=== PATIENT | male | born 1965 | race Caucasian/White ===

== ENCOUNTER 2017-09-29 19:39 | Emergency (ER) | payer OTHER ==
[2017-09-29] MEDS ORDERED: Ketorolac 60 MG/2 ML SDV IM ONE (20:09)
--- NOTE | 2017-09-29 20:10 | EDM.PDOC ---
ED HPI GENERAL MEDICAL PROBLEM - General Chief Complaint: Back Pain or Injury Stated Complaint: BACK PAIN/RT SIDE Time Seen by Provider: 09/29/17 19:58 - History of Present Illness INITIAL COMMENTS - FREE TEXT/NARRATIVE: HISTORY AND PHYSICAL: History of present illness: The patient is a 52-year-old male who says he's had issues with his lumbar back in the past with a slipped disc and presents with lower cervical upper thoracic left-sided deep pain which she describes as muscle-like in character and he cannot get comfortable. 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 He has no chest pain no shortness of breath no fevers no chills and no lower back or mid back complaints. The patient says he feels numbness going down the back of his arm along the triceps down all the way to his hand but he does not have weakness in his arm. 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 He says in the past he cannot take muscle relaxers as they put him to sleep for 12 hours and he has taken Emblem in the past for pain. He has not taken anything [id number] for this discomfort but states that he has been trying to take hot showers and the heat does help the area. The patient says that when he moves the arm and utilizes that he feels much better but when he is sitting resting or lying down it seems to be worse Review of systems: As per history of present illness and below otherwise all systems reviewed and negative. Past medical history: As per history of present illness and as reviewed below otherwise noncontributory. Surgical history: As per history of present illness and as reviewed below otherwise noncontributory. Social history: No reported history of drug or alcohol abuse. Family history: As per history of present illness and as reviewed below otherwise noncontributory. Physical exam: General: Well-developed well-nourished muscular man who is nontoxic and looks uncomfortable in the room and can't sit still and keeps moving his left upper extremity up down in all directions. HEENT: Atraumatic, normocephalic, pupils reactive, negative for conjunctival pallor or scleral icterus, mucous membranes moist, throat clear, neck supple, nontender, trachea midline. Lungs: Clear to auscultation, breath sounds equal bilaterally, chest nontender. There is no crepitus defects or deformities of the posterior chest wall Heart: S1S2, regular rate and rhythm no overt murmurs Abdomen: Soft, nondistended, nontender. NABS Negative for costovertebral tenderness. Pelvis: Deferred Genitourinary: Deferred. Rectal: Deferred. Extremities: Atraumatic, negative for cords or calf pain. Neurovascular unremarkable. Full range of motion of all extremities Neuro: Awake, alert, oriented. Cranial nerves II through XII unremarkable. Cerebellum unremarkable. Motor and sensory unremarkable throughout. Exam nonfocal. There is normal tone throughout the extremities and no evidence of any deficits of the left upper extremity on motor evaluation. Back: There are no midline step-offs tenderness defects of the cervical thoracic or lumbar spine but there is some reproducible muscle spasm and tenderness to the left of the lower cervical upper thoracic region in the deep muscles. Diagnostics: CT scan of the C-spine and T-spine Therapeutics: Toradol heat pack The patient drove himself and refuses stronger pain medications in the ED I discussed with the patient that he would possibly need an MRI going forward due to the subjective numbness he is having and as he currently has no weakness and has a significant amount of pain we would proceed to do CT scans and treat the pain as appropriately as we can. He states understanding of our inability to do this MRI and that it would likely need to be done as an outpatient. I will give him referrals to primary care to pursue this as needed. I discussed testing results with the patient and I will give him a Medrol Dosepak as there is a small disc bulge at C3-C4. I strongly advised need for follow-up. I will also give him Emblem from [employer] [facility] for pain management at home as this has worked in the past for him Impression: Mild disc disease cervical spine with paresthesia and pain Definitive disposition and diagnosis as appropriate pending reevaluation and review of above. Left Shoulder Pain Score (Numeric/FACES): 8 - Related Data Allergies Allergy/AdvReac Type Severity Reaction Status Date / Time No Known Allergies Allergy Verified 09/29/17 20:01 Home Meds: Home Meds . [No Known Home Meds] 09/29/17 [History] Past Medical History - Past Health History Medical/Surgical History: Denies Medical/Surgical History Social & Family History - Tobacco Use Smoking Status *Q: Never Smoker Second Hand Smoke Exposure: No - Caffeine Use Caffeine Use: Reports: Other - Recreational Drug Use Recreational Drug Use: No ED ROS GENERAL - Review of Systems Review Of Systems: ROS reveals no pertinent complaints other than HPI. ED EXAM, GENERAL - Physical Exam Exam: See Below (See dictation) Course - Vital Signs Last Recorded V/S: Last Vital Signs Temp 36.2 C 09/29/17 20:10 Pulse 107 H 09/29/17 20:10 Resp 18 09/29/17 20:10 BP 160/102 H 09/29/17 20:10 Pulse Ox 95 09/29/17 20:10 - Orders/Labs/Meds Orders: Active Orders 24 hr Category Date Time Status Cervical Spine wo Cont [CT] Stat Exams 09/29/17 20:09 Taken Thoracic Spine wo Cont [CT] Stat Exams 09/29/17 20:12 Taken Meds: Medications Discontinued Medications Generic Name Dose Route Start Last Admin Trade Name Jyotsna PRN Reason Stop Dose Admin Ketorolac Tromethamine 60 mg 09/29/17 20:09 09/29/17 20:15 Toradol IM 09/29/17 20:10 60 mg ONETIME ONE Administration Departure - Departure Time of Disposition: 21:46 Disposition: Home, Self-Care 01 Condition: Good Clinical Impression: Cervical disc disease - Discharge Information Referrals: PCP,None [Primary Care Provider] - Forms: ED Department Discharge Additional Instructions: The following information is given to patients seen in the emergency department who are being discharged to home. This information is to outline your options for follow-up care. We provide all patients seen in our emergency department with a follow-up referral. The need for follow-up, as well as the timing and circumstances, are variable depending upon the specifics of your emergency department visit. If you don't have a primary care physician on staff, we will provide you with a referral. We always advise you to contact your personal physician following an emergency department visit to inform them of the circumstance of the visit and for follow-up with them and/or the need for any referrals to a consulting specialist. The emergency department will also refer you to a specialist when appropriate. This referral assures that you have the opportunity for followup care with a specialist. All of these measure are taken in an effort to provide you with optimal care, which includes your followup. Under all circumstances we always encourage you to contact your private physician who remains a resource for coordinating your care. When calling for followup care, please make the office aware that this follow-up is from your recent emergency room visit. If for any reason you are refused follow-up, please contact the [facility] emergency department at and ask to speak to the emergency department charge nurse. [facility] Primary care- Internal Medicine and Family [address] [id number] Please take medication as prescribed to be [employer], Medrol Dosepak and Emblem. Please call and schedule a follow-up appointment in the clinic as you may need an outpatient MRI if symptoms do not improve. Return to ER as needed and as discussed - My Orders Last 24 Hours: My Active Orders 09/29/17 20:09 Cervical Spine wo Cont [CT] Stat 09/29/17 20:12 Thoracic Spine wo Cont [CT] Stat - Assessment/Plan Last 24 Hours: My Active Orders 09/29/17 20:09 Cervical Spine wo Cont [CT] Stat 09/29/17 20:12 Thoracic Spine wo Cont [CT] Stat
--- NOTE | 2017-09-30 09:50 | CT ---
EXAM DATE: 09/29/17 PATIENT'S AGE: 52 Patient: DON PETERS Facility: [place], [place] Site . Site : 1965 Study: CT Spine Cervical WO CONT [id number] 8:39:25 PM Ordering Physician: Cha Martínez Final Report: INDICATION: Left-sided neck and upper arm pain TECHNIQUE: CT cervical spine without contrast. COMPARISON: None FINDINGS: Vertebrae: Alignment is normal. There are no fractures or suspicious bony lesions. Small osteophytes are present at multiple levels. Discs and facet joints: Small posterior disc protrusion is present at C3-4. Remainder of the disc spaces and facet joints are within normal limits. Extraspinal findings: Prevertebral soft tissues, visualized airway, and visualized lungs are unremarkable. IMPRESSION: No acute findings or significant degenerative changes. There is a small posterior disc protrusion at C3-4. MRI evaluation should be considered for further assessment of the spinal cord and nerve roots. Please note that all CT scans at this facility use dose modulation, iterative reconstruction, and/or weight-based dosing when appropriate to reduce radiation dose to as low as reasonably achievable. Dictated by Alphonso Vazquez MD @ Sep 29 2017 8:46PM (Electronic Signature) Report Signed by Proxy. TARA
--- NOTE | 2017-09-30 09:55 | CT ---
EXAM DATE: 09/29/17 PATIENT'S AGE: 52 Patient: DON PETERS Facility: [place], [place] Site . Site : 1965 Study: CT Spine Thoracic wo cont [id number] 9:05:05 PM Ordering Physician: Cha Martínez Final Report: INDICATION: Upper back and left-sided neck pain. TECHNIQUE: CT thoracic spine without i.v. contrast. Coronal and sagittal reformats were obtained. COMPARISON: None FINDINGS: Vertebral alignment: Alignment is normal. Vertebrae: No acute fractures or aggressive osseous lesions are identified. Discs and facet joints: Mild degree of multilevel thoracic spine degenerative disc disease with anterior marginal osteophytes. Misc: Prevertebral soft tissues are normal in appearance. The visualized airway , mediastinum, and lungs are unremarkable. IMPRESSION: 1. Mild degree of multilevel thoracic spine degenerative disk disease. No suspicious osseous lesions or compression abnormality. Dictated by Darnell Gage MD @ 09/29/2017 9:35:30 PM Dictated by: Darnell Gage MD @ 09/29/2017 21:35:53 (Electronic Signature) Report Signed by Proxy. [facility]ITAL[facility]ose[facility]
== END 2017-09-29 22:06 | disposition home or self-care (01) ==
LOC: MW.ED 19:39
DX: M50.91 Cervical disc disorder, unspecified, high cervical region (principal)
CPT/HCPCS: 72125; 72128; 96372; 99283; J1885

== ENCOUNTER 2017-11-27 12:14 | Day surgery (SDC) | payer OTHER ==
[2017-11-27] MEDS ORDERED: Sodium Chloride 0.9% 1,000 ML IV ONE (12:15)
[2017-11-27] MEDS ORDERED: Ondansetron 4 MG/2 ML SDV IVPUSH ONE ×2 (12:15→14:36)
--- NOTE | 2017-11-27 12:26 | EDM.PDOC ---
ED HPI GENERAL MEDICAL PROBLEM - General Stated Complaint: VOMITING Time Seen by Provider: 11/27/17 12:16 Source of Information: Reports: Patient History Limitations: Reports: No Limitations - History of Present Illness INITIAL COMMENTS - FREE TEXT/NARRATIVE: HISTORY AND PHYSICAL: History of present illness: Patient is a 52-year-old male who presents to the emergency room today with complaints of nausea, vomiting and abdominal pain since 11:30 last night. He states he has been having an emesis every 30 minutes. Vague about his abdominal pain c/o. States it only hurts when he is wrenching during vomiting or when pressing on his epigastrium/ RUQ/RLQ. Denies any fever, chills, chest pain, shortness of breath or cough. Denies any diarrhea or constipation. No symptoms. Denies any alcohol or drug abuse. Review of systems: As per history of present illness and below otherwise all systems reviewed and negative. Past medical history: As per history of present illness and as reviewed below otherwise noncontributory. Surgical history: As per history of present illness and as reviewed below otherwise noncontributory. Social history: No reported history of drug or alcohol abuse. Family history: As per history of present illness and as reviewed below otherwise noncontributory. Physical exam: General: Well-developed and well-nourished 52-year-old male. Alert and oriented. Nontoxic appearing and in no acute distress. HEENT: Atraumatic, normocephalic, pupils equal and reactive bilaterally, negative for conjunctival pallor or scleral icterus, mucous membranes moist, throat clear, neck supple, nontender, trachea midline. No drooling or trismus noted. No meningeal signs Lungs: Clear to auscultation, breath sounds equal bilaterally, chest nontender. Heart: S1S2, regular rate and rhythm without overt murmur Abdomen: Soft, nondistended, tenderness to the right upper quadrant and right lower quadrant, rebound tenderness. Negative for masses or hepatosplenomegaly. Negative for costovertebral tenderness. Pelvis: Stable nontender. Genitourinary: Deferred. Rectal: Deferred. Skin: Intact, warm, dry. No lesions or rashes noted. Extremities: Atraumatic, negative for cords or calf pain. Neurovascular unremarkable. Neuro: Awake, alert, oriented. Cranial nerves II through XII unremarkable. Cerebellum unremarkable. Motor and sensory unremarkable throughout. Exam nonfocal. Notes: WBC 13.9, Blood Glucose 319, >1000 glucose in urine. HgA1C added at this time ( 10.8). CT shows situs with enlarged appendix and minimal surrounding inflammatory changes and right lower quadrant. Appendicolith in the base of the appendix. There is no abscess or free intraperitoneal air seen. Fatty infiltration of the liver. 1410 - Dr Ratliff was consulted on this case. He is agreeable to seeing this patient. Was made aware of the lab and CT findings. He has not eaten yet today. States that he did try drinking some fluids this morning but did have emesis shortly after. It offer him additional pain medications at this time. He states he is comfortable and declines. 1430- Dr Ratliff here to see patient. Diagnostics: CBC, CMP, Amylase, Lipase, UA Therapeutics: NS, Carly Impression: Appendicitis New onset Diabetes Plan: To OR with Gaudencio Definitive disposition and diagnosis as appropriate pending reevaluation and review of above. Onset: Today Location: Reports: Abdomen abdominal pain Pain Score (Numeric/FACES): 7 - Related Data Allergies Allergy/AdvReac Type Severity Reaction Status Date / Time No Known Allergies Allergy Verified 09/29/17 20:01 Home Meds: Home Meds Hydrocodone/Acetaminophen [Lorcet Hd 10-325 mg Tablet] 11/27/17 [History] Muscle Relaxer 11/27/17 [History] Past Medical History - Past Health History Medical/Surgical History: Denies Medical/Surgical History Social & Family History - Caffeine Use Caffeine Use: Reports: Other ED ROS GENERAL - Review of Systems Review Of Systems: ROS reveals no pertinent complaints other than HPI. ED EXAM, GENERAL - Physical Exam Exam: See Below (See dictation) Course - Vital Signs Last Recorded V/S: Last Vital Signs Temp 99.2 F 11/27/17 14:15 Pulse 84 11/27/17 14:15 Resp 16 11/27/17 14:15 BP 154/98 H 11/27/17 14:15 Pulse Ox 98 11/27/17 14:15 - Orders/Labs/Meds Orders: Active Orders 24 hr Category Date Time Status Abdomen Pelvis w Cont [CT] Stat Exams 11/27/17 12:34 Taken UA W/MICROSCOPIC [URIN] Stat Lab 11/27/17 13:30 Ordered Labs: Laboratory Tests 11/27/17 11/27/17 11/27/17 Range/Units 12:30 12:30 12:30 WBC 13.93 H (4.0-11.0) K/uL RBC 5.24 (4.50-5.90) M/uL Hgb 16.7 (13.0-17.0) g/dL Hct 45.7 (38.0-50.0) % MCV 87.2 (80.0-98.0) fL MCH 31.9 (27.0-32.0) pg MCHC 36.5 (31.0-37.0) g/dL RDW Std Deviation 39.7 (28.0-62.0) fl RDW Coeff of Fuad 12 (11.0-15.0) % Plt Count 168 (150-400) K/uL MPV 9.50 (7.40-12.00) fL Neut % (Auto) 87.7 H (48.0-80.0) % Lymph % (Auto) 7.0 L (16.0-40.0) % [place] % (Auto) 5.2 (0.0-15.0) % Eos % (Auto) 0.0 (0.0-7.0) % Baso % (Auto) 0.1 (0.0-1.5) % Neut # (Auto) 12.2 H (1.4-5.7) K/uL Lymph # (Auto) 1.0 (0.6-2.4) K/uL [place] # (Auto) 0.7 (0.0-0.8) K/uL Eos # (Auto) 0.0 (0.0-0.7) K/uL Baso # (Auto) 0.0 (0.0-0.1) K/uL Nucleated RBC % 0.0 /100WBC Nucleated RBCs # 0 K/uL Sodium 136 (136-148) mmol/L Potassium 4.2 (3.5-5.1) mmol/L Chloride 99 (98-107) mmol/L Carbon Dioxide 25.9 (21.0-32.0) mmol/L BUN 12 (7.0-18.0) mg/dL Creatinine 1.0 (0.8-1.3) mg/dL Est Cr Clr Drug Dosing 99.88 mL/min Estimated GFR (MDRD) > 60.0 ml/min Glucose 319 H (74-106) mg/dL Hemoglobin A1c (4.5-6.2) % Calcium 9.3 (8.5-10.1) mg/dL Total Bilirubin 3.0 H (0.2-1.0) mg/dL AST 19 (15-37) IU/L ALT 36 (14-63) IU/L Alkaline Phosphatase 79 (46-116) U/L Troponin I < 0.050 (0.000-0.056) ng/mL Total Protein 7.7 (6.4-8.2) g/dL Albumin 4.4 (3.4-5.0) g/dL Globulin 3.3 (2.0-3.5) g/dL Albumin/Globulin Ratio 1.3 (1.3-2.8) Amylase 16 L (25-115) U/L Lipase 110 (73-393) U/L Urine Color Urine Appearance Urine pH (5.0-8.0) Ur Specific [place] (1.001-1.035) Urine Protein (NEGATIVE) mg/dL Urine Glucose (UA) (NEGATIVE) mg/dL Urine Ketones (NEGATIVE) mg/dL Urine Occult Blood (NEGATIVE) Urine Nitrite (NEGATIVE) Urine Bilirubin (NEGATIVE) Urine Urobilinogen (<2.0) EU/dL Ur Leukocyte Esterase (NEGATIVE) Urine RBC (0-2/HPF) Urine WBC (0-5/HPF) Ur Epithelial Cells (NONE-FEW) Urine Bacteria (NEGATIVE) 11/27/17 11/27/17 Range/Units 12:30 13:30 WBC (4.0-11.0) K/uL RBC (4.50-5.90) M/uL Hgb (13.0-17.0) g/dL Hct (38.0-50.0) % MCV (80.0-98.0) fL MCH (27.0-32.0) pg MCHC (31.0-37.0) g/dL RDW Std Deviation (28.0-62.0) fl RDW Coeff of Fuad (11.0-15.0) % Plt Count (150-400) K/uL MPV (7.40-12.00) fL Neut % (Auto) (48.0-80.0) % Lymph % (Auto) (16.0-40.0) % [place] % (Auto) (0.0-15.0) % Eos % (Auto) (0.0-7.0) % Baso % (Auto) (0.0-1.5) % Neut # (Auto) (1.4-5.7) K/uL Lymph # (Auto) (0.6-2.4) K/uL [place] # (Auto) (0.0-0.8) K/uL Eos # (Auto) (0.0-0.7) K/uL Baso # (Auto) (0.0-0.1) K/uL Nucleated RBC % /100WBC Nucleated RBCs # K/uL Sodium (136-148) mmol/L Potassium (3.5-5.1) mmol/L Chloride (98-107) mmol/L Carbon Dioxide (21.0-32.0) mmol/L BUN (7.0-18.0) mg/dL Creatinine (0.8-1.3) mg/dL Est Cr Clr Drug Dosing mL/min Estimated GFR (MDRD) ml/min Glucose (74-106) mg/dL Hemoglobin A1c 10.8 H (4.5-6.2) % Calcium (8.5-10.1) mg/dL Total Bilirubin (0.2-1.0) mg/dL AST (15-37) IU/L ALT (14-63) IU/L Alkaline Phosphatase (46-116) U/L Troponin I (0.000-0.056) ng/mL Total Protein (6.4-8.2) g/dL Albumin (3.4-5.0) g/dL Globulin (2.0-3.5) g/dL Albumin/Globulin Ratio (1.3-2.8) Amylase (25-115) U/L Lipase (73-393) U/L Urine Color YELLOW Urine Appearance CLEAR Urine pH 7.0 (5.0-8.0) Ur Specific [place] <= 1.005 (1.001-1.035) Urine Protein NEGATIVE (NEGATIVE) mg/dL Urine Glucose (UA) >=1000 (NEGATIVE) mg/dL Urine Ketones >=80 (NEGATIVE) mg/dL Urine Occult Blood NEGATIVE (NEGATIVE) Urine Nitrite NEGATIVE (NEGATIVE) Urine Bilirubin NEGATIVE (NEGATIVE) Urine Urobilinogen 0.2 (<2.0) EU/dL Ur Leukocyte Esterase NEGATIVE (NEGATIVE) Urine RBC 0-2 (0-2/HPF) Urine WBC 0-3 (0-5/HPF) Ur Epithelial Cells RARE (NONE-FEW) Urine Bacteria RARE (NEGATIVE) Meds: Medications Discontinued Medications Generic Name Dose Route Start Last Admin Trade Name Freq PRN Reason Stop Dose Admin Sodium Chloride 1,000 mls @ 999 mls/hr 11/27/17 12:15 11/27/17 12:30 Normal Saline IV 11/27/17 13:15 999 mls/hr STAT ONE Administration Iopamidol 100 ml 11/27/17 13:34 11/27/17 13:35 Isovue Multipack-370 (76%) IVPUSH 11/27/17 13:35 100 ml ONETIME STA Administration Ondansetron HCl 4 mg 11/27/17 12:15 11/27/17 12:30 Zofran IVPUSH 11/27/17 12:16 4 mg ONETIME ONE Administration Ondansetron HCl 4 mg 11/27/17 14:36 11/27/17 14:43 Zofran IVPUSH 11/27/17 14:37 4 mg ONETIME ONE Administration Departure - Departure Time of Disposition: 14:49 Disposition: Still A Patient 30 Clinical Impression: Appendicitis, New onset type 2 diabetes mellitus - Discharge Information Referrals: PCP,None [Primary Care Provider] - - My Orders Last 24 Hours: My Active Orders 11/27/17 12:34 Abdomen Pelvis w Cont [CT] Stat 11/27/17 13:30 UA W/MICROSCOPIC [URIN] Stat - Assessment/Plan Last 24 Hours: My Active Orders 11/27/17 12:34 Abdomen Pelvis w Cont [CT] Stat 11/27/17 13:30 UA W/MICROSCOPIC [URIN] Stat
[2017-11-27 12:59] LABS: CHLORIDE,CL 99 mmol/L (98-107); SODIUM,NA 136 mmol/L (136-148)
[2017-11-27] MEDS ORDERED: Iopamidol 755 MG/ML 500 ML Multipack Bottle IVPUSH STA (13:34)
[2017-11-27] MEDS ORDERED: cefOXitin 2 GM in Premix Bag 1 BAG IV ONE ×2 (14:53→14:57)
--- NOTE | 2017-11-27 15:01 | PCM.HP ---
H&P History of Present Illness - General Date of Service: 11/27/17 Admit Problem/Dx: Admission Diagnosis/Problem Admission Diagnosis/Problem Acute abdomen Source of Information: Patient History Limitations: Reports: No Limitations - History of Present Illness Initial Comments - Free Text/Narative: Patient is a 52-year-old gentleman who developed nausea and vomiting about midnight last night. The symptoms have been persistent. He did try to go to work but had too much abdominal pain. Says the pain is located in the right lower quadrant. He really denied pain with ambulation or jarring although did note discomfort when his abdomen was palpated. No fever or chills. No anorexia. No prior abdominal surgery. Symptom Onset Date: 11/27/17 Symptom Onset Time: 00:00 Duration of Symptoms: Reports: Hour(s): Location: Reports: Abdomen Quality: Reports: Ache, Pressure Improves with: Reports: Rest Worsens with: Reports: Movement Context: Reports: Sick Contact Associated Symptoms: Reports: Nausea/Vomiting abdominal pain Pain Score (Numeric/FACES): 7 - Related Data Allergies/Adverse Reactions: Allergies Allergy/AdvReac Type Severity Reaction Status Date / Time No Known Allergies Allergy Verified 09/29/17 20:01 Home Medications: Home Meds Hydrocodone/Acetaminophen [Lorcet Hd 10-325 mg Tablet] 11/27/17 [History] Muscle Relaxer 11/27/17 [History] Past Medical History - Past Health History Medical/Surgical History: Denies Medical/Surgical History - Infectious Disease History Infectious Disease History: Reports: Chicken Pox - Past Surgical History HEENT Surgical History: Reports: Tonsillectomy Social & Family History - Family History Family Medical History: Noncontributory - Tobacco Use Smoking Status *Q: Current Every Day Smoker Years of Tobacco use: 4 Packs/Tins Daily: 0.3 - Caffeine Use Caffeine Use: Reports: Other - Alcohol Use Days Per Week of Alcohol Use: 2 Number of Drinks Per Day: 2 Total Drinks Per Week: 4 - Recreational Drug Use Recreational Drug Use: No H&P Review of Systems - Review of Systems: Review Of Systems: See Below General: Denies: Fever, Chills, Decreased Appetite HEENT: Reports: No Symptoms Pulmonary: Denies: Shortness of Breath, Wheezing Cardiovascular: Reports: Chest Pain Gastrointestinal: Reports: Abdominal Pain, Nausea, Vomiting. Denies: Anorexia, Hematemesis, Hematochezia Genitourinary: Denies: Dysuria, Frequency, Burning Skin: Denies: Cyanosis, Jaundice Psychiatric: Denies: Confusion, Depression, Anxiety Neurological: Reports: No Symptoms Hematologic/Lymphatic: Reports: No Symptoms Immunologic: Reports: No Symptoms Exam - Exam Exam: See Below - Vital Signs Vital Signs: Last Vital Signs Temp 99.2 F 11/27/17 14:15 Pulse 84 11/27/17 14:15 Resp 16 11/27/17 14:15 BP 154/98 H 11/27/17 14:15 Pulse Ox 98 11/27/17 14:15 Weight: 250 lb - Exam General: Alert, Oriented, Cooperative, Mild Distress HEENT: Conjunctiva Clear, EOMI, Pupils Equal, Pupils Reactive. No: Scleral Icterus Neck: Supple, Trachea Midline Lungs: Clear to Auscultation, Normal Respiratory Effort Cardiovascular: Regular Rate, Regular Rhythm. No: Tachycardia GI/Abdominal Exam: Normal Bowel Sounds, Soft, No Distention, Guarding, Rebound, Tender (Right lower quadrant.). No: Rigid (Male) Exam: No Hernia Rectal (Males) Exam: Deferred Back Exam: Normal Inspection, Full Range of Motion Extremities: Normal Inspection, Normal Range of Motion Peripheral Pulses: 4+: Posterior Tibial (L), Posterior Tibial (R), Dorsalis Pedis (L), Dorsalis Pedis (R) Skin: Warm, Dry, Intact Neurological: Cranial Nerves Intact, Reflexes Equal Bilateral Neuro Extensive - Mental Status: Alert, Oriented x3, Normal Mood/Affect, Normal Cognition Psychiatric: Alert, Normal Affect, Normal Mood - Patient Data Lab Results Last 24 hrs: Laboratory Results - last 24 hr 11/27/17 11/27/17 11/27/17 Range/Units 12:30 12:30 12:30 WBC 13.93 H (4.0-11.0) K/uL RBC 5.24 (4.50-5.90) M/uL Hgb 16.7 (13.0-17.0) g/dL Hct 45.7 (38.0-50.0) % MCV 87.2 (80.0-98.0) fL MCH 31.9 (27.0-32.0) pg MCHC 36.5 (31.0-37.0) g/dL RDW Std Deviation 39.7 (28.0-62.0) fl RDW Coeff of Fuad 12 (11.0-15.0) % Plt Count 168 (150-400) K/uL MPV 9.50 (7.40-12.00) fL Neut % (Auto) 87.7 H (48.0-80.0) % Lymph % (Auto) 7.0 L (16.0-40.0) % [place] % (Auto) 5.2 (0.0-15.0) % Eos % (Auto) 0.0 (0.0-7.0) % Baso % (Auto) 0.1 (0.0-1.5) % Neut # (Auto) 12.2 H (1.4-5.7) K/uL Lymph # (Auto) 1.0 (0.6-2.4) K/uL [place] # (Auto) 0.7 (0.0-0.8) K/uL Eos # (Auto) 0.0 (0.0-0.7) K/uL Baso # (Auto) 0.0 (0.0-0.1) K/uL Nucleated RBC % 0.0 /100WBC Nucleated RBCs # 0 K/uL Sodium 136 (136-148) mmol/L Potassium 4.2 (3.5-5.1) mmol/L Chloride 99 (98-107) mmol/L Carbon Dioxide 25.9 (21.0-32.0) mmol/L BUN 12 (7.0-18.0) mg/dL Creatinine 1.0 (0.8-1.3) mg/dL Est Cr Clr Drug Dosing 99.88 mL/min Estimated GFR (MDRD) > 60.0 ml/min Glucose 319 H (74-106) mg/dL Hemoglobin A1c (4.5-6.2) % Calcium 9.3 (8.5-10.1) mg/dL Total Bilirubin 3.0 H (0.2-1.0) mg/dL AST 19 (15-37) IU/L ALT 36 (14-63) IU/L Alkaline Phosphatase 79 (46-116) U/L Troponin I < 0.050 (0.000-0.056) ng/mL Total Protein 7.7 (6.4-8.2) g/dL Albumin 4.4 (3.4-5.0) g/dL Globulin 3.3 (2.0-3.5) g/dL Albumin/Globulin Ratio 1.3 (1.3-2.8) Amylase 16 L (25-115) U/L Lipase 110 (73-393) U/L Urine Color Urine Appearance Urine pH (5.0-8.0) Ur Specific [place] (1.001-1.035) Urine Protein (NEGATIVE) mg/dL Urine Glucose (UA) (NEGATIVE) mg/dL Urine Ketones (NEGATIVE) mg/dL Urine Occult Blood (NEGATIVE) Urine Nitrite (NEGATIVE) Urine Bilirubin (NEGATIVE) Urine Urobilinogen (<2.0) EU/dL Ur Leukocyte Esterase (NEGATIVE) Urine RBC (0-2/HPF) Urine WBC (0-5/HPF) Ur Epithelial Cells (NONE-FEW) Urine Bacteria (NEGATIVE) 11/27/17 11/27/17 Range/Units 12:30 13:30 WBC (4.0-11.0) K/uL RBC (4.50-5.90) M/uL Hgb (13.0-17.0) g/dL Hct (38.0-50.0) % MCV (80.0-98.0) fL MCH (27.0-32.0) pg MCHC (31.0-37.0) g/dL RDW Std Deviation (28.0-62.0) fl RDW Coeff of Fuad (11.0-15.0) % Plt Count (150-400) K/uL MPV (7.40-12.00) fL Neut % (Auto) (48.0-80.0) % Lymph % (Auto) (16.0-40.0) % [place] % (Auto) (0.0-15.0) % Eos % (Auto) (0.0-7.0) % Baso % (Auto) (0.0-1.5) % Neut # (Auto) (1.4-5.7) K/uL Lymph # (Auto) (0.6-2.4) K/uL [place] # (Auto) (0.0-0.8) K/uL Eos # (Auto) (0.0-0.7) K/uL Baso # (Auto) (0.0-0.1) K/uL Nucleated RBC % /100WBC Nucleated RBCs # K/uL Sodium (136-148) mmol/L Potassium (3.5-5.1) mmol/L Chloride (98-107) mmol/L Carbon Dioxide (21.0-32.0) mmol/L BUN (7.0-18.0) mg/dL Creatinine (0.8-1.3) mg/dL Est Cr Clr Drug Dosing mL/min Estimated GFR (MDRD) ml/min Glucose (74-106) mg/dL Hemoglobin A1c 10.8 H (4.5-6.2) % Calcium (8.5-10.1) mg/dL Total Bilirubin (0.2-1.0) mg/dL AST (15-37) IU/L ALT (14-63) IU/L Alkaline Phosphatase (46-116) U/L Troponin I (0.000-0.056) ng/mL Total Protein (6.4-8.2) g/dL Albumin (3.4-5.0) g/dL Globulin (2.0-3.5) g/dL Albumin/Globulin Ratio (1.3-2.8) Amylase (25-115) U/L Lipase (73-393) U/L Urine Color YELLOW Urine Appearance CLEAR Urine pH 7.0 (5.0-8.0) Ur Specific [place] <= 1.005 (1.001-1.035) Urine Protein NEGATIVE (NEGATIVE) mg/dL Urine Glucose (UA) >=1000 (NEGATIVE) mg/dL Urine Ketones >=80 (NEGATIVE) mg/dL Urine Occult Blood NEGATIVE (NEGATIVE) Urine Nitrite NEGATIVE (NEGATIVE) Urine Bilirubin NEGATIVE (NEGATIVE) Urine Urobilinogen 0.2 (<2.0) EU/dL Ur Leukocyte Esterase NEGATIVE (NEGATIVE) Urine RBC 0-2 (0-2/HPF) Urine WBC 0-3 (0-5/HPF) Ur Epithelial Cells RARE (NONE-FEW) Urine Bacteria RARE (NEGATIVE) Result Diagrams: 11/27/17 12:30 11/27/17 12:30 - Problem List (1) Appendicitis SNOMED Code(s): 33589425 ICD Code: K37 - UNSPECIFIED APPENDICITIS Status: Acute Priority: High Current Visit: Yes (2) New onset type 2 diabetes mellitus SNOMED Code(s): 70146417 ICD Code: E11.9 - TYPE 2 DIABETES MELLITUS WITHOUT COMPLICATIONS Status: Acute Priority: Medium Current Visit: Yes (3) Cervical disc disease SNOMED Code(s): 971693660 ICD Code: M50.90 - CERVICAL DISC DISORDER, UNSP, UNSPECIFIED CERVICAL REGION Status: Acute Priority: Medium Current Visit: No Problem List Initiated/Reviewed/Updated: Yes Orders Last 24hrs: Active Orders 24 hr Category Date Time Status Admission Status [Patient Status] [ADT] Routine ADT 11/27/17 14:54 Ordered Antiembolic Devices [RC] PER UNIT ROUTINE Care 11/27/17 14:53 Ordered Insert Urinary Catheter [OM.PC] Q24H Care 11/27/17 15:00 Ordered Skin Preparation [RC] ASDIRECTED Care 11/27/17 14:53 Ordered Urinary Catheter Assessment [RC] ASDIRECTED Care 11/27/17 14:53 Ordered Urinary Catheter Assessment [RC] ASDIRECTED Care 11/27/17 14:53 Ordered Urinary Catheter Assessment [RC] ASDIRECTED Care 11/27/17 14:53 Ordered Vital Signs [RC] PER UNIT ROUTINE Care 11/27/17 14:53 Ordered Nothing Per Oral Diet [DIET] Diet 11/27/17 Lunch Ordered Abdomen Pelvis w Cont [CT] Stat Exams 11/27/17 12:34 Taken UA W/MICROSCOPIC [URIN] Stat Lab 11/27/17 13:30 Ordered Lactated Ringers @ 125 MLS/HR(1,000ml) Med 11/27/17 15:00 Ordered Lactated Ringers [Ringers, Lactated] 1,000 ml IV ASDIRECTED cefOXitin [Mefoxin in Dextrose,Iso-Osm 2 GM/50 ML] 2 gm Med 11/27/17 14:53 Ordered Premix Bag 1 bag IV ONETIME cefOXitin [Mefoxin in Dextrose,Iso-Osm 2 GM/50 ML] 2 gm Med 11/27/17 14:53 Ordered Premix Bag 1 bag IV ONETIME Antiembolic Hose [OM.PC] Routine Oth 11/27/17 14:53 Ordered Sequential Compression Device [OM.PC] Routine Oth 11/27/17 14:53 Ordered Resuscitation Status Routine Resus Stat 11/27/17 14:53 Ordered Medication Orders Cefoxitin Sodium 2 gm/ Premix 50 mls @ 100 mls/hr IV ONETIME ONE Stop: 11/27/17 15:22 Cefoxitin Sodium 2 gm/ Premix 50 mls @ 100 mls/hr IV ONETIME ONE Stop: 11/27/17 15:22 Lactated Ringer's (Ringers, Lactated) 1,000 mls @ 125 mls/hr IV ASDIRECTED [facility] Assessment/Plan Comment:: Acute appendicitis. Laparoscopic appendectomy, possible open appendectomy. Both operative procedures, along with the risks, including, but not limited to, bleeding, infection, pneumonia, deep venous thrombosis, pulmonary emboli, myocardial infarction, and adjacent organ injury have been reviewed with the patient who voices understanding, offers no questions and agrees to proceed.
[2017-11-27] MEDS ORDERED: Insulin Regular, Human 100 Units/ML 10 ML Vial SUBCUT STA (15:03)
[2017-11-27] MEDS: Lactated Ringers 1,000 ML IV SCH ×2 (15:09→18:31)
[2017-11-27] MEDS ORDERED: Famotidine 20 MG/2 ML SDV IVPUSH ONE (15:11)
--- NOTE | 2017-11-27 15:13 | PCM.PREANE ---
Preanesthetic Assessment - Anesthesia/Transfusion/Family Hx Anesthesia History: Prior Anesthesia Without Reaction Family History of Anesthesia Reaction: No Transfusion History: No Prior Transfusion(s) - Review of Systems General: No Symptoms Pulmonary: No Symptoms Cardiovascular: No Symptoms Gastrointestinal: No Symptoms Neurological: No Symptoms Other: Reports: None - Physical Assessment NPO Status Date: 11/27/17 O2 Sat by Pulse Oximetry: 98 Respiratory Rate: 16 Vital Signs: Last Vital Signs Temp 99.2 F 11/27/17 14:15 Pulse 84 11/27/17 14:15 Resp 16 11/27/17 14:15 BP 154/98 H 11/27/17 14:15 Pulse Ox 98 11/27/17 14:15 Height: 6 ft 1 in Weight: 113.398 kg ASA Class: 3E Mental Status: Alert & Oriented x3 Airway Class: Mallampati = 2 Dentition: Reports: Normal Dentition Thyro-Mental Finger Breadths: 3 Mouth Opening Finger Breadths: 3 ROM/Head Extension: Full Lungs: Clear to Auscultation, Normal Respiratory Effort Cardiovascular: Regular Rate, Regular Rhythm - Lab Values: Laboratory Last Values WBC 13.93 K/uL (4.0-11.0) H 11/27/17 12:30 RBC 5.24 M/uL (4.50-5.90) 11/27/17 12:30 Hgb 16.7 g/dL (13.0-17.0) 11/27/17 12:30 Hct 45.7 % (38.0-50.0) 11/27/17 12:30 MCV 87.2 fL (80.0-98.0) 11/27/17 12:30 MCH 31.9 pg (27.0-32.0) 11/27/17 12:30 MCHC 36.5 g/dL (31.0-37.0) 11/27/17 12:30 RDW Std Deviation 39.7 fl (28.0-62.0) 11/27/17 12:30 RDW Coeff of Fuad 12 % (11.0-15.0) 11/27/17 12:30 Plt Count 168 K/uL (150-400) 11/27/17 12:30 MPV 9.50 fL (7.40-12.00) 11/27/17 12:30 Neut % (Auto) 87.7 % (48.0-80.0) H 11/27/17 12:30 Lymph % (Auto) 7.0 % (16.0-40.0) L 11/27/17 12:30 [place] % (Auto) 5.2 % (0.0-15.0) 11/27/17 12:30 Eos % (Auto) 0.0 % (0.0-7.0) 11/27/17 12:30 Baso % (Auto) 0.1 % (0.0-1.5) 11/27/17 12:30 Neut # (Auto) 12.2 K/uL (1.4-5.7) H 11/27/17 12:30 Lymph # (Auto) 1.0 K/uL (0.6-2.4) 11/27/17 12:30 [place] # (Auto) 0.7 K/uL (0.0-0.8) 11/27/17 12:30 Eos # (Auto) 0.0 K/uL (0.0-0.7) 11/27/17 12:30 Baso # (Auto) 0.0 K/uL (0.0-0.1) 11/27/17 12:30 Nucleated RBC % 0.0 /100WBC 11/27/17 12:30 Nucleated RBCs # 0 K/uL 11/27/17 12:30 Sodium 136 mmol/L (136-148) 11/27/17 12:30 Potassium 4.2 mmol/L (3.5-5.1) 11/27/17 12:30 Chloride 99 mmol/L (98-107) 11/27/17 12:30 Carbon Dioxide 25.9 mmol/L (21.0-32.0) 11/27/17 12:30 BUN 12 mg/dL (7.0-18.0) 11/27/17 12:30 Creatinine 1.0 mg/dL (0.8-1.3) 11/27/17 12:30 Est Cr Clr Drug Dosing 99.88 mL/min 11/27/17 12:30 Estimated GFR (MDRD) > 60.0 ml/min 11/27/17 12:30 Glucose 319 mg/dL (74-106) H 11/27/17 12:30 Hemoglobin A1c 10.8 % (4.5-6.2) H 11/27/17 12:30 Calcium 9.3 mg/dL (8.5-10.1) 11/27/17 12:30 Total Bilirubin 3.0 mg/dL (0.2-1.0) H 11/27/17 12:30 AST 19 IU/L (15-37) 11/27/17 12:30 ALT 36 IU/L (14-63) 11/27/17 12:30 Alkaline Phosphatase 79 U/L (46-116) 11/27/17 12:30 Troponin I < 0.050 ng/mL (0.000-0.056) 11/27/17 12:30 Total Protein 7.7 g/dL (6.4-8.2) 11/27/17 12:30 Albumin 4.4 g/dL (3.4-5.0) 11/27/17 12:30 Globulin 3.3 g/dL (2.0-3.5) 11/27/17 12:30 Albumin/Globulin Ratio 1.3 (1.3-2.8) 11/27/17 12:30 Amylase 16 U/L (25-115) L 11/27/17 12:30 Lipase 110 U/L (73-393) 11/27/17 12:30 Urine Color YELLOW 11/27/17 13:30 Urine Appearance CLEAR 11/27/17 13:30 Urine pH 7.0 (5.0-8.0) 11/27/17 13:30 Ur Specific [place] <= 1.005 (1.001-1.035) 11/27/17 13:30 Urine Protein NEGATIVE mg/dL (NEGATIVE) 11/27/17 13:30 Urine Glucose (UA) >=1000 mg/dL (NEGATIVE) 11/27/17 13:30 Urine Ketones >=80 mg/dL (NEGATIVE) 11/27/17 13:30 Urine Occult Blood NEGATIVE (NEGATIVE) 11/27/17 13:30 Urine Nitrite NEGATIVE (NEGATIVE) 11/27/17 13:30 Urine Bilirubin NEGATIVE (NEGATIVE) 11/27/17 13:30 Urine Urobilinogen 0.2 EU/dL (<2.0) 11/27/17 13:30 Ur Leukocyte Esterase NEGATIVE (NEGATIVE) 11/27/17 13:30 Urine RBC 0-2 (0-2/HPF) 11/27/17 13:30 Urine WBC 0-3 (0-5/HPF) 11/27/17 13:30 Ur Epithelial Cells RARE (NONE-FEW) 11/27/17 13:30 Urine Bacteria RARE (NEGATIVE) 11/27/17 13:30 - Allergies Allergies/Adverse Reactions: Allergies Allergy/AdvReac Type Severity Reaction Status Date / Time No Known Allergies Allergy Verified 09/29/17 20:01 - Anesthesia Plan Free Text/Narrative:: Pt with 1 day Hx of abd Pain, on evaluation in the ER, undiagnosed DM II was discovered as well. BG 319 on lab work, Regular Insulin 4 units SubQ ordered, EKG pending also at this time. Risk and benefits of anesthesia were discussed, including elevated risk of MS and CVA secondary to untreated DM. Pt understands and wishes to proceed at this time. - Acknowledgements Anesthesia Type Planned: General Anesthesia (RSI) Pt an Appropriate Candidate for the Planned Anesthesia: Yes Alternatives and Risks of Anesthesia Discussed w Pt/Guardian: Yes Pt/Guardian Understands and Agrees with Anesthesia Plan: Yes PreAnesthesia Questionnaire - Past Health History Medical/Surgical History: Denies Medical/Surgical History HEENT History: Reports: None Cardiovascular History: Reports: Hypertension Respiratory History: Reports: Other (See Below) (Smoker 1 Pack per every two weeks) Gastrointestinal History: Reports: GERD Genitourinary History: Reports: None Musculoskeletal History: Reports: Neck Pain, Chronic (Bulging cervical disc) Neurological History: Reports: Other (See Below) Psychiatric History: Reports: None Endocrine/Metabolic History: Reports: Diabetes, Type II (Undiagnosed DM II, HgA1C 10.8 on this admission.), Obesity/BMI 30+ Hematologic History: Reports: None Immunologic History: Reports: None Oncologic (Cancer) History: Reports: None Dermatologic History: Reports: None - Infectious Disease History Infectious Disease History: Reports: Chicken Pox - Past Surgical History HEENT Surgical History: Reports: Tonsillectomy - SUBSTANCE USE Smoking Status *Q: Current Every Day Smoker Tobacco Use Within Last Twelve Months: Cigarettes Days Per Week of Alcohol Use: 2 Number of Drinks Per Day: 2 Total Drinks Per Week: 4 Recreational Drug Use History: No - HOME MEDS Home Medications: Home Meds Hydrocodone/Acetaminophen [Lorcet Hd 10-325 mg Tablet] 11/27/17 [History] Muscle Relaxer 11/27/17 [History] - CURRENT (IN HOUSE) MEDS Current Meds: Current Medications Cefoxitin Sodium 2 gm/ Premix 50 mls @ 100 mls/hr IV ONETIME ONE Stop: 11/27/17 15:26 Last Admin: 11/27/17 15:02 Dose: 100 mls/hr Lactated Ringer's (Ringers, Lactated) 1,000 mls @ 125 mls/hr IV ASDIRECTED LUPE Insulin Human Regular (Novolin R) 4 unit SUBCUT ONETIME STA; Protocol Stop: 11/27/17 15:04 Discontinued Medications Sodium Chloride (Normal Saline) 1,000 mls @ 999 mls/hr IV STAT ONE Stop: 11/27/17 13:15 Last Admin: 11/27/17 12:30 Dose: 999 mls/hr Iopamidol (Isovue Multipack-370 (76%)) 100 ml IVPUSH ONETIME STA Stop: 11/27/17 13:35 Last Admin: 11/27/17 13:35 Dose: 100 ml Ondansetron HCl (Zofran) 4 mg IVPUSH ONETIME ONE Stop: 11/27/17 12:16 Last Admin: 11/27/17 12:30 Dose: 4 mg Ondansetron HCl (Zofran) 4 mg IVPUSH ONETIME ONE Stop: 11/27/17 14:37 Last Admin: 11/27/17 14:43 Dose: 4 mg
[2017-11-27] MEDS ORDERED: Insulin Regular, Human 100 Units/ML 10 ML Vial ONE (15:14)
[2017-11-27] MEDS ORDERED: ceFAZolin 1 GM Vial ONE (15:14)
[2017-11-27] MEDS ORDERED: Bupivacaine 0.5% 10 ML SDV ONE (15:15)
[2017-11-27] MEDS ORDERED: Bupivacaine 0.5% 30 ML SDV ONE (15:15)
[2017-11-27] MEDS ORDERED: Lidocaine 2% 5 ML SDV ONE (15:29)
[2017-11-27] MEDS ORDERED: Ondansetron 4 MG/2 ML SDV ONE (15:29)
[2017-11-27] MEDS ORDERED: Succinylcholine 200 MG/10 ML MDV ONE (15:29)
[2017-11-27] MEDS ORDERED: Propofol 200 MG/20 ML SDV ONE (15:29)
[2017-11-27] MEDS ORDERED: Rocuronium 10 MG/ML 10 ML Syringe ONE (15:29)
[2017-11-27] MEDS ORDERED: Midazolam 1 MG/ML 2 ML SDV ONE (15:30)
[2017-11-27] MEDS ORDERED: fentaNYL 250 MCG/5 ML SDV ONE (15:30)
[2017-11-27] MEDS ORDERED: fentaNYL 100 MCG/2 ML SDV ONE (16:21)
[2017-11-27] MEDS ORDERED: HYDROmorphone 2 MG/ML SDV ONE (16:21)
[2017-11-27] MEDS ORDERED: fentaNYL 100 MCG/2 ML SDV IVPUSH PRN (17:12)
[2017-11-27] MEDS ORDERED: Lactated Ringers 1,000 ML IV SCH (17:15)
[2017-11-27] MEDS ORDERED: Acetaminophen 325 MG Tab PO PRN (17:18)
[2017-11-27] MEDS ORDERED: Ondansetron 4 MG/2 ML SDV IVPUSH PRN (17:18)
--- NOTE | 2017-11-27 17:21 | PCM.OPNOTE ---
- General Post-Op/Procedure Note Date of Surgery/Procedure: 11/27/17 Operative Procedure(s): Laparoscopic appendectomy Pre Op Diagnosis: Acute abdomen Post-Op Diagnosis: Acute nonsuppurative appendicitis Anesthesia Technique: General ET Tube (ASA IIIE) Primary Surgeon: Rhett Ratliff Fluid Replacement, Intraop: 1,600 EBL in mLs: 10 Condition: Fair Free Text/Narrative:: DICTATION [id number] CPT CODE 26235
[2017-11-27] MEDS ORDERED: Morphine 10 MG/ML Syringe IVPUSH PRN (17:27)
[2017-11-27] MEDS ORDERED: Acetaminophen/HYDROcodone 325-5 MG Tab PO PRN (17:27)
--- NOTE | 2017-11-27 18:02 | PCM.POSTAN ---
POST ANESTHESIA ASSESSMENT - MENTAL STATUS Mental Status: Alert, Oriented - VITAL SIGNS Pulse Rate: 88 SaO2: 95 Resp Rate: 12 - RESPIRATORY Respiratory Status: Respiratory Rate WNL, Airway Patent, O2 Saturation Stable - CARDIOVASCULAR CV Status: Pulse Rate WNL, Blood Pressure Stable - GASTROINTESTINAL GI Status: No Symptoms - PAIN Pain Score: 0 - POST OP HYDRATION Hydration Status: Adequate & Stable
[2017-11-27] MEDS: Metoclopramide 10 MG/2 ML SDV IV SCH ×2 (18:36→23:30)
--- NOTE | 2017-11-27 20:00 | OR ---
SURGEON: Rhett Ratliff M.D. DATE OF PROCEDURE: 11/27/2017 OPERATION PERFORMED: Laparoscopic appendectomy. ANESTHESIA: General endotracheal. [employer] CLASSIFICATION: III E. PREOPERATIVE DIAGNOSIS: Acute abdomen. POSTOPERATIVE DIAGNOSIS: Acute nonruptured appendicitis. ESTIMATED BLOOD LOSS: 10 mL. INTRAOPERATIVE FLUID REPLACEMENT: 1600 mL of crystalloid. DESCRIPTION OF PROCEDURE: The patient was taken to the operating room and placed on the operating table in the supine position. Time-out was called for appropriate identification of the patient and procedure. Thigh-high TEDs and sequential compression boots were placed. Following satisfactory attainment of general endotracheal anesthesia, a Peng catheter was placed in the patient's urinary bladder. The abdomen was prepped with DuraPrep solution. Sterile drapes were applied. The skin just above the umbilicus was infiltrated with 0.5% Marcaine solution. The skin incision was made, deepened through subcutaneous tissue obtaining hemostasis with the use of electrocautery. The Veress needle was introduced into the peritoneal cavity. The saline drop test was positive. Carbon dioxide pneumoperitoneum was established with the relief set at 13 cm of water. Once we had a satisfactory pneumoperitoneum, 5-mm camera and port were placed through the supraumbilical incision. The patient was positioned with his feet down and rolled to the left. Under camera vision, 12-mm suprapubic and 5-mm left lower quadrant ports were placed. Each incision had preemptively been infiltrated with 0.5% Marcaine solution. The appendix was grasped, and showed an acute inflammatory process. The mesoappendix was taken down with the Harmonic scalpel. The appendix was ligated at its junction with the cecum using the Endo- MIKE echelon 45 stapler. The appendix was then placed in an Endopouch. The staple line was inspected and felt to be hemostatic. I did not see any leakage of stool or purulent material. The right lower quadrant was then irrigated with several 100 mL of sterile saline solution. All fluid was aspirated. The Endopouch containing appendix was removed through the suprapubic incision removing the 12-mm port at the same time. Again under camera vision, the 5-mm left lower quadrant port was removed and finally the supraumbilical camera and port were removed. The wounds were inspected for hemostasis and small bleeding sites were electrocoagulated. The supraumbilical and suprapubic incisions were closed in 2 layers approximating the subcutaneous tissue with 3-0 Polysorb. The suprapubic incision was then closed with subcuticular 4-0 Stratafix. The supraumbilical and left lower quadrant ports were closed with subcuticular 4-0 Monocryl. All incisions were Steri-Stripped and dressed with sterile Tegaderm pads. Sponge, needle, and instrument counts were all correct. Peng catheter was removed prior to emergence from anesthesia. Following emergence from anesthesia and extubation, the patient was taken to recovery room in satisfactory condition. SHON MARKHAM /[id number]
[2017-11-27] MEDS ORDERED: Insulin Glargine,Human Rec. Analog 100 Units/ML 3 ML Pen SUBCUT SCH (21:00)
[2017-11-27] MEDS: Insulin Aspart 100 Units/ML 3 ML Pen SUBCUT SCH (21:28)
--- NOTE | 2017-11-27 23:18 | PCM.CONS ---
H&P History of Present Illness - General Admit Problem/Dx: Admission Diagnosis/Problem Admission Diagnosis/Problem Acute abdomen - History of Present Illness Initial Comments - Free Text/Narative: 52 yo male who was admitted after appendectomy for acute appendicitis. Patient is newly diagnosed with diabetes today. He was found to have a HgA1c of 10. He did not know he had any problems with blood sugar. He reports he and his just lost 40 lbs as they were attemting to get healthy after his was diagnosed with diabetes. He does report increased thirst, urination, and blurred vision. abdominal pain Pain Score (Numeric/FACES): 1 - Related Data Allergies/Adverse Reactions: Allergies Allergy/AdvReac Type Severity Reaction Status Date / Time No Known Allergies Allergy Verified 09/29/17 20:01 Home Medications: Home Meds Hydrocodone/Acetaminophen [Lorcet Hd 10-325 mg Tablet] 11/27/17 [History] Muscle Relaxer 11/27/17 [History] Past Medical History - Past Health History Medical/Surgical History: Denies Medical/Surgical History HEENT History: Reports: None Cardiovascular History: Reports: Hypertension Respiratory History: Reports: Other (See Below) (Smoker 1 Pack per every two weeks) Gastrointestinal History: Reports: GERD Genitourinary History: Reports: None Musculoskeletal History: Reports: Neck Pain, Chronic (Bulging cervical disc) Neurological History: Reports: Other (See Below) Psychiatric History: Reports: None Endocrine/Metabolic History: Reports: Diabetes, Type II (Undiagnosed DM II, HgA1C 10.8 on this admission.), Obesity/BMI 30+ Hematologic History: Reports: None Immunologic History: Reports: None Oncologic (Cancer) History: Reports: None Dermatologic History: Reports: None - Infectious Disease History Infectious Disease History: Reports: Chicken Pox - Past Surgical History HEENT Surgical History: Reports: Tonsillectomy Social & Family History - Family History Family Medical History: Noncontributory - Tobacco Use Smoking Status *Q: Current Every Day Smoker Years of Tobacco use: 4 Packs/Tins Daily: 0.3 - Caffeine Use Caffeine Use: Reports: Other - Alcohol Use Days Per Week of Alcohol Use: 2 Number of Drinks Per Day: 2 Total Drinks Per Week: 4 - Recreational Drug Use Recreational Drug Use: No H&P Review of Systems - Review of Systems: Review Of Systems: ROS reveals no pertinent complaints other than HPI. Exam - Vital Signs Vital Signs: Last Vital Signs Temp 36.3 C 11/27/17 20:00 Pulse 82 11/27/17 22:30 Resp 12 11/27/17 20:00 BP 118/71 11/27/17 22:30 Pulse Ox 99 11/27/17 22:30 Weight: 113.398 kg - Exam General: Alert, Oriented HEENT: Mucosa Moist & [place] Lungs: Clear to Auscultation, Normal Respiratory Effort Cardiovascular: Regular Rate, Regular Rhythm GI/Abdominal Exam: Soft Extremities: No Pedal Edema Skin: Warm, Dry, Intact - Patient Data Lab Results Last 24 hrs: Laboratory Results - last 24 hr 11/27/17 11/27/17 11/27/17 Range/Units 12:30 12:30 12:30 WBC 13.93 H (4.0-11.0) K/uL RBC 5.24 (4.50-5.90) M/uL Hgb 16.7 (13.0-17.0) g/dL Hct 45.7 (38.0-50.0) % MCV 87.2 (80.0-98.0) fL MCH 31.9 (27.0-32.0) pg MCHC 36.5 (31.0-37.0) g/dL RDW Std Deviation 39.7 (28.0-62.0) fl RDW Coeff of Fuad 12 (11.0-15.0) % Plt Count 168 (150-400) K/uL MPV 9.50 (7.40-12.00) fL Neut % (Auto) 87.7 H (48.0-80.0) % Lymph % (Auto) 7.0 L (16.0-40.0) % [place] % (Auto) 5.2 (0.0-15.0) % Eos % (Auto) 0.0 (0.0-7.0) % Baso % (Auto) 0.1 (0.0-1.5) % Neut # (Auto) 12.2 H (1.4-5.7) K/uL Lymph # (Auto) 1.0 (0.6-2.4) K/uL [place] # (Auto) 0.7 (0.0-0.8) K/uL Eos # (Auto) 0.0 (0.0-0.7) K/uL Baso # (Auto) 0.0 (0.0-0.1) K/uL Nucleated RBC % 0.0 /100WBC Nucleated RBCs # 0 K/uL Sodium 136 (136-148) mmol/L Potassium 4.2 (3.5-5.1) mmol/L Chloride 99 (98-107) mmol/L Carbon Dioxide 25.9 (21.0-32.0) mmol/L BUN 12 (7.0-18.0) mg/dL Creatinine 1.0 (0.8-1.3) mg/dL Est Cr Clr Drug Dosing 99.88 mL/min Estimated GFR (MDRD) > 60.0 ml/min Glucose 319 H (74-106) mg/dL POC Glucose (60-110) mg/dL Hemoglobin A1c (4.5-6.2) % Calcium 9.3 (8.5-10.1) mg/dL Total Bilirubin 3.0 H (0.2-1.0) mg/dL AST 19 (15-37) IU/L ALT 36 (14-63) IU/L Alkaline Phosphatase 79 (46-116) U/L Troponin I < 0.050 (0.000-0.056) ng/mL Total Protein 7.7 (6.4-8.2) g/dL Albumin 4.4 (3.4-5.0) g/dL Globulin 3.3 (2.0-3.5) g/dL Albumin/Globulin Ratio 1.3 (1.3-2.8) Amylase 16 L (25-115) U/L Lipase 110 (73-393) U/L Urine Color Urine Appearance Urine pH (5.0-8.0) Ur Specific [place] (1.001-1.035) Urine Protein (NEGATIVE) mg/dL Urine Glucose (UA) (NEGATIVE) mg/dL Urine Ketones (NEGATIVE) mg/dL Urine Occult Blood (NEGATIVE) Urine Nitrite (NEGATIVE) Urine Bilirubin (NEGATIVE) Urine Urobilinogen (<2.0) EU/dL Ur Leukocyte Esterase (NEGATIVE) Urine RBC (0-2/HPF) Urine WBC (0-5/HPF) Ur Epithelial Cells (NONE-FEW) Urine Bacteria (NEGATIVE) 11/27/17 11/27/17 11/27/17 Range/Units 12:30 13:30 15:12 WBC (4.0-11.0) K/uL RBC (4.50-5.90) M/uL Hgb (13.0-17.0) g/dL Hct (38.0-50.0) % MCV (80.0-98.0) fL MCH (27.0-32.0) pg MCHC (31.0-37.0) g/dL RDW Std Deviation (28.0-62.0) fl RDW Coeff of [place] (11.0-15.0) % Plt Count (150-400) K/uL MPV (7.40-12.00) fL Neut % (Auto) (48.0-80.0) % Lymph % (Auto) (16.0-40.0) % [place] % (Auto) (0.0-15.0) % Eos % (Auto) (0.0-7.0) % Baso % (Auto) (0.0-1.5) % Neut # (Auto) (1.4-5.7) K/uL Lymph # (Auto) (0.6-2.4) K/uL [place] # (Auto) (0.0-0.8) K/uL Eos # (Auto) (0.0-0.7) K/uL Baso # (Auto) (0.0-0.1) K/uL Nucleated RBC % /100WBC Nucleated RBCs # K/uL Sodium (136-148) mmol/L Potassium (3.5-5.1) mmol/L Chloride (98-107) mmol/L Carbon Dioxide (21.0-32.0) mmol/L BUN (7.0-18.0) mg/dL Creatinine (0.8-1.3) mg/dL Est Cr Clr Drug Dosing mL/min Estimated GFR (MDRD) ml/min Glucose (74-106) mg/dL POC Glucose 250 H (60-110) mg/dL Hemoglobin A1c 10.8 H (4.5-6.2) % Calcium (8.5-10.1) mg/dL Total Bilirubin (0.2-1.0) mg/dL AST (15-37) IU/L ALT (14-63) IU/L Alkaline Phosphatase (46-116) U/L Troponin I (0.000-0.056) ng/mL Total Protein (6.4-8.2) g/dL Albumin (3.4-5.0) g/dL Globulin (2.0-3.5) g/dL Albumin/Globulin Ratio (1.3-2.8) Amylase (25-115) U/L Lipase (73-393) U/L Urine Color YELLOW Urine Appearance CLEAR Urine pH 7.0 (5.0-8.0) Ur Specific [place] <= 1.005 (1.001-1.035) Urine Protein NEGATIVE (NEGATIVE) mg/dL Urine Glucose (UA) >=1000 (NEGATIVE) mg/dL Urine Ketones >=80 (NEGATIVE) mg/dL Urine Occult Blood NEGATIVE (NEGATIVE) Urine Nitrite NEGATIVE (NEGATIVE) Urine Bilirubin NEGATIVE (NEGATIVE) Urine Urobilinogen 0.2 (<2.0) EU/dL Ur Leukocyte Esterase NEGATIVE (NEGATIVE) Urine RBC 0-2 (0-2/HPF) Urine WBC 0-3 (0-5/HPF) Ur Epithelial Cells RARE (NONE-FEW) Urine Bacteria RARE (NEGATIVE) 11/27/17 11/27/17 11/27/17 Range/Units 15:41 17:07 21:26 WBC (4.0-11.0) K/uL RBC (4.50-5.90) M/uL Hgb (13.0-17.0) g/dL Hct (38.0-50.0) % MCV (80.0-98.0) fL MCH (27.0-32.0) pg MCHC (31.0-37.0) g/dL RDW Std Deviation (28.0-62.0) fl RDW Coeff of Fuad (11.0-15.0) % Plt Count (150-400) K/uL MPV (7.40-12.00) fL Neut % (Auto) (48.0-80.0) % Lymph % (Auto) (16.0-40.0) % [place] % (Auto) (0.0-15.0) % Eos % (Auto) (0.0-7.0) % Baso % (Auto) (0.0-1.5) % Neut # (Auto) (1.4-5.7) K/uL Lymph # (Auto) (0.6-2.4) K/uL [place] # (Auto) (0.0-0.8) K/uL Eos # (Auto) (0.0-0.7) K/uL Baso # (Auto) (0.0-0.1) K/uL Nucleated RBC % /100WBC Nucleated RBCs # K/uL Sodium (136-148) mmol/L Potassium (3.5-5.1) mmol/L Chloride (98-107) mmol/L Carbon Dioxide (21.0-32.0) mmol/L BUN (7.0-18.0) mg/dL Creatinine (0.8-1.3) mg/dL Est Cr Clr Drug Dosing mL/min Estimated GFR (MDRD) ml/min Glucose (74-106) mg/dL POC Glucose 271 H 218 H 208 H (60-110) mg/dL Hemoglobin A1c (4.5-6.2) % Calcium (8.5-10.1) mg/dL Total Bilirubin (0.2-1.0) mg/dL AST (15-37) IU/L ALT (14-63) IU/L Alkaline Phosphatase (46-116) U/L Troponin I (0.000-0.056) ng/mL Total Protein (6.4-8.2) g/dL Albumin (3.4-5.0) g/dL Globulin (2.0-3.5) g/dL Albumin/Globulin Ratio (1.3-2.8) Amylase (25-115) U/L Lipase (73-393) U/L Urine Color Urine Appearance Urine pH (5.0-8.0) Ur Specific [place] (1.001-1.035) Urine Protein (NEGATIVE) mg/dL Urine Glucose (UA) (NEGATIVE) mg/dL Urine Ketones (NEGATIVE) mg/dL Urine Occult Blood (NEGATIVE) Urine Nitrite (NEGATIVE) Urine Bilirubin (NEGATIVE) Urine Urobilinogen (<2.0) EU/dL Ur Leukocyte Esterase (NEGATIVE) Urine RBC (0-2/HPF) Urine WBC (0-5/HPF) Ur Epithelial Cells (NONE-FEW) Urine Bacteria (NEGATIVE) Result Diagrams: 11/27/17 12:30 11/27/17 12:30 Consult PN Assessment/Plan Procedures: Procedures CT CHEST SPINE W/O DYE (09/29/17) CT NECK SPINE W/O DYE (09/29/17) EMERGENCY DEPT VISIT (09/29/17) THER/PROPH/DIAG INJ SC/IM (09/29/17) Problem List Initiated/Reviewed/Updated: Yes My Orders Last 24 Hours: My Active Orders 11/27/17 21:00 Blood Glucose Check, Bedside [RC] QIDACANDBED Insulin Aspart [NovoLOG] See Protocol SUBCUT ACBED Insulin Glarg,Human.Rec.Analog [LantUS Solostar] 10 units SUBCUT BEDTIME Plan: 52 yo male s/p appendectomy with newly diagnosed diabetes. Will place on lantus 10 units with sliding scale insulin. Patient educated on the need for diabetic diet and exercise.
[2017-11-27] MEDS: cefOXitin 1 GM in Premix Bag 1 BAG IV SCH (23:31)
[2017-11-28] MEDS: Metoclopramide 10 MG/2 ML SDV IV SCH ×2 (05:12→12:18)
[2017-11-28] MEDS: cefOXitin 1 GM in Premix Bag 1 BAG IV SCH (07:51)
--- NOTE | 2017-11-28 08:15 | PCM48HPAN ---
Post Anesthesia Note - EVALUATION WITHIN 48HRS OF ANESTHETIC Vital Signs in Normal Range: Yes Patient Participated in Evaluation: Yes Respiratory Function Stable: Yes Airway Patent: Yes Cardiovascular Function Stable: Yes Hydration Status Stable: Yes Pain Control Satisfactory: Yes Nausea and Vomiting Control Satisfactory: Yes Mental Status Recovered: Yes Pulse Rate: 88 Resp Rate: 12
[2017-11-28] MEDS: Insulin Aspart 100 Units/ML 3 ML Pen SUBCUT SCH ×2 (08:20→12:10)
--- NOTE | 2017-11-28 08:57 | PCM.DCSUM1 ---
Discharge Summary - Hospital Course HPI Initial Comments: 52 y/o male presented to the ER on 11/27 with 12+ hour history of nausea and vomiting with minimal discomfort. Mild leucocytosis. CT showed acute appendicitis without rupture or fluid collection. Brief History: See H&P - Discharge Data Discharge Date: 11/28/17 Discharge Disposition: Home, Self-Care 01 Condition: Fair - Discharge Diagnosis/Problem(s) (1) Appendicitis SNOMED Code(s): 72467469 ICD Code: K37 - UNSPECIFIED APPENDICITIS Status: Acute Priority: High Current Visit: Yes (2) New onset type 2 diabetes mellitus SNOMED Code(s): 21969417 ICD Code: E11.9 - TYPE 2 DIABETES MELLITUS WITHOUT COMPLICATIONS Status: Acute Priority: Medium Current Visit: Yes (3) Cervical disc disease SNOMED Code(s): 664224887 ICD Code: M50.90 - CERVICAL DISC DISORDER, UNSP, UNSPECIFIED CERVICAL REGION Status: Acute Priority: Medium Current Visit: No - Patient Summary/Data Operative Procedure(s) Performed: Laparoscopic appendectomy Consults: Consultations 11/27/17 15:40 Consult to Physician [CONS] Urgent - Patient Instructions Diet: Diabetic Diet Activity: As Tolerated, No Lifting Over 25 Pounds (for 6 weeks), Rest and Relax Today Driving: Do Not Drive (until 11/29 or after) Showering/Bathing: May Shower Wound/Incision Care: Keep Operative Site/Wound Site Clean and Dry Notify Provider of: Fever, Increased Pain, Swelling and Redness, Drainage Other/Special Instructions: See Dr. Ratliff on 12/02. Send Rx. - Discharge Plan Home Medications: Home Meds Hydrocodone/Acetaminophen [Lorcet Hd 10-325 mg Tablet] 11/27/17 [History] Muscle Relaxer 11/27/17 [History] Patient Handouts: Type 2 Diabetes Mellitus, Diagnosis, Adult, Insulin Treatment for Diabetes, Laparoscopic Appendectomy, Adult, Care After, Easy-to- Read Forms: ED Department Discharge Referrals: Rhett Ratliff MD [Physician] - PCP,None [Primary Care Provider] - (Please obtain 1 week follw-up with PCP.) - Discharge Summary/Plan Comment DC Time >30 min.: No - General Info Date of Service: 11/28/17 Subjective Update: Feeling much better. No N/V. Afebrile. Functional Status: Reports: Pain Controlled, Tolerating Diet, Ambulating, Urinating. Denies: New Symptoms - Review of Systems General: Denies: Fever, Weakness, Fatigue, Malaise HEENT: Reports: No Symptoms Pulmonary: Denies: Shortness of Breath, Cough Cardiovascular: Denies: Chest Pain Gastrointestinal: Reports: Flatus. Denies: Abdominal Pain, Constipation, Decreased Appetite, Diarrhea, Hematochezia, Melena, Nausea, Vomiting Genitourinary: Denies: Dysuria, Frequency, Burning Musculoskeletal: Reports: No Symptoms Skin: Denies: Cyanosis, Jaundice Neurological: Denies: Confusion, Dizziness, Headache Psychiatric: Denies: Confusion, Depression, Anxiety - Patient Data Vitals - Most Recent: Last Vital Signs Temp 98.4 F 11/28/17 08:01 Pulse 88 11/28/17 08:15 Resp 12 11/28/17 08:15 BP 108/60 11/28/17 08:01 Pulse Ox 93 L 11/28/17 08:01 Weight - Most Recent: 250 lb I&O - Last 24 hours: Intake & Output 11/27/17 11/28/17 11/28/17 19:59 03:59 11:59 Intake Total 3300 50 3514 Output Total 60 1425 Balance 3240 50 2089 Lab Results - Last 24 hrs: Laboratory Results - last 24 hr 11/27/17 11/27/17 11/27/17 Range/Units 12:30 12:30 12:30 WBC 13.93 H (4.0-11.0) K/uL RBC 5.24 (4.50-5.90) M/uL Hgb 16.7 (13.0-17.0) g/dL Hct 45.7 (38.0-50.0) % MCV 87.2 (80.0-98.0) fL MCH 31.9 (27.0-32.0) pg MCHC 36.5 (31.0-37.0) g/dL RDW Std Deviation 39.7 (28.0-62.0) fl RDW Coeff of [place] 12 (11.0-15.0) % Plt Count 168 (150-400) K/uL MPV 9.50 (7.40-12.00) fL Neut % (Auto) 87.7 H (48.0-80.0) % Lymph % (Auto) 7.0 L (16.0-40.0) % [place] % (Auto) 5.2 (0.0-15.0) % Eos % (Auto) 0.0 (0.0-7.0) % Baso % (Auto) 0.1 (0.0-1.5) % Neut # (Auto) 12.2 H (1.4-5.7) K/uL Lymph # (Auto) 1.0 (0.6-2.4) K/uL [place] # (Auto) 0.7 (0.0-0.8) K/uL Eos # (Auto) 0.0 (0.0-0.7) K/uL Baso # (Auto) 0.0 (0.0-0.1) K/uL Nucleated RBC % 0.0 /100WBC Nucleated RBCs # 0 K/uL Sodium 136 (136-148) mmol/L Potassium 4.2 (3.5-5.1) mmol/L Chloride 99 (98-107) mmol/L Carbon Dioxide 25.9 (21.0-32.0) mmol/L BUN 12 (7.0-18.0) mg/dL Creatinine 1.0 (0.8-1.3) mg/dL Est Cr Clr Drug Dosing 99.88 mL/min Estimated GFR (MDRD) > 60.0 ml/min Glucose 319 H (74-106) mg/dL POC Glucose (60-110) mg/dL Hemoglobin A1c (4.5-6.2) % Calcium 9.3 (8.5-10.1) mg/dL Total Bilirubin 3.0 H (0.2-1.0) mg/dL AST 19 (15-37) IU/L ALT 36 (14-63) IU/L Alkaline Phosphatase 79 (46-116) U/L Troponin I < 0.050 (0.000-0.056) ng/mL Total Protein 7.7 (6.4-8.2) g/dL Albumin 4.4 (3.4-5.0) g/dL Globulin 3.3 (2.0-3.5) g/dL Albumin/Globulin Ratio 1.3 (1.3-2.8) Amylase 16 L (25-115) U/L Lipase 110 (73-393) U/L Urine Color Urine Appearance Urine pH (5.0-8.0) Ur Specific [place] (1.001-1.035) Urine Protein (NEGATIVE) mg/dL Urine Glucose (UA) (NEGATIVE) mg/dL Urine Ketones (NEGATIVE) mg/dL Urine Occult Blood (NEGATIVE) Urine Nitrite (NEGATIVE) Urine Bilirubin (NEGATIVE) Urine Urobilinogen (<2.0) EU/dL Ur Leukocyte Esterase (NEGATIVE) Urine RBC (0-2/HPF) Urine WBC (0-5/HPF) Ur Epithelial Cells (NONE-FEW) Urine Bacteria (NEGATIVE) 11/27/17 11/27/17 11/27/17 Range/Units 12:30 13:30 15:12 WBC (4.0-11.0) K/uL RBC (4.50-5.90) M/uL Hgb (13.0-17.0) g/dL Hct (38.0-50.0) % MCV (80.0-98.0) fL MCH (27.0-32.0) pg MCHC (31.0-37.0) g/dL RDW Std Deviation (28.0-62.0) fl RDW Coeff of [place] (11.0-15.0) % Plt Count (150-400) K/uL MPV (7.40-12.00) fL Neut % (Auto) (48.0-80.0) % Lymph % (Auto) (16.0-40.0) % [place] % (Auto) (0.0-15.0) % Eos % (Auto) (0.0-7.0) % Baso % (Auto) (0.0-1.5) % Neut # (Auto) (1.4-5.7) K/uL Lymph # (Auto) (0.6-2.4) K/uL [place] # (Auto) (0.0-0.8) K/uL Eos # (Auto) (0.0-0.7) K/uL Baso # (Auto) (0.0-0.1) K/uL Nucleated RBC % /100WBC Nucleated RBCs # K/uL Sodium (136-148) mmol/L Potassium (3.5-5.1) mmol/L Chloride (98-107) mmol/L Carbon Dioxide (21.0-32.0) mmol/L BUN (7.0-18.0) mg/dL Creatinine (0.8-1.3) mg/dL Est Cr Clr Drug Dosing mL/min Estimated GFR (MDRD) ml/min Glucose (74-106) mg/dL POC Glucose 250 H (60-110) mg/dL Hemoglobin A1c 10.8 H (4.5-6.2) % Calcium (8.5-10.1) mg/dL Total Bilirubin (0.2-1.0) mg/dL AST (15-37) IU/L ALT (14-63) IU/L Alkaline Phosphatase (46-116) U/L Troponin I (0.000-0.056) ng/mL Total Protein (6.4-8.2) g/dL Albumin (3.4-5.0) g/dL Globulin (2.0-3.5) g/dL Albumin/Globulin Ratio (1.3-2.8) Amylase (25-115) U/L Lipase (73-393) U/L Urine Color YELLOW Urine Appearance CLEAR Urine pH 7.0 (5.0-8.0) Ur Specific [place] <= 1.005 (1.001-1.035) Urine Protein NEGATIVE (NEGATIVE) mg/dL Urine Glucose (UA) >=1000 (NEGATIVE) mg/dL Urine Ketones >=80 (NEGATIVE) mg/dL Urine Occult Blood NEGATIVE (NEGATIVE) Urine Nitrite NEGATIVE (NEGATIVE) Urine Bilirubin NEGATIVE (NEGATIVE) Urine Urobilinogen 0.2 (<2.0) EU/dL Ur Leukocyte Esterase NEGATIVE (NEGATIVE) Urine RBC 0-2 (0-2/HPF) Urine WBC 0-3 (0-5/HPF) Ur Epithelial Cells RARE (NONE-FEW) Urine Bacteria RARE (NEGATIVE) 11/27/17 11/27/17 11/27/17 Range/Units 15:41 17:07 21:26 WBC (4.0-11.0) K/uL RBC (4.50-5.90) M/uL Hgb (13.0-17.0) g/dL Hct (38.0-50.0) % MCV (80.0-98.0) fL MCH (27.0-32.0) pg MCHC (31.0-37.0) g/dL RDW Std Deviation (28.0-62.0) fl RDW Coeff of [place] (11.0-15.0) % Plt Count (150-400) K/uL MPV (7.40-12.00) fL Neut % (Auto) (48.0-80.0) % Lymph % (Auto) (16.0-40.0) % [place] % (Auto) (0.0-15.0) % Eos % (Auto) (0.0-7.0) % Baso % (Auto) (0.0-1.5) % Neut # (Auto) (1.4-5.7) K/uL Lymph # (Auto) (0.6-2.4) K/uL [place] # (Auto) (0.0-0.8) K/uL Eos # (Auto) (0.0-0.7) K/uL Baso # (Auto) (0.0-0.1) K/uL Nucleated RBC % /100WBC Nucleated RBCs # K/uL Sodium (136-148) mmol/L Potassium (3.5-5.1) mmol/L Chloride (98-107) mmol/L Carbon Dioxide (21.0-32.0) mmol/L BUN (7.0-18.0) mg/dL Creatinine (0.8-1.3) mg/dL Est Cr Clr Drug Dosing mL/min Estimated GFR (MDRD) ml/min Glucose (74-106) mg/dL POC Glucose 271 H 218 H 208 H (60-110) mg/dL Hemoglobin A1c (4.5-6.2) % Calcium (8.5-10.1) mg/dL Total Bilirubin (0.2-1.0) mg/dL AST (15-37) IU/L ALT (14-63) IU/L Alkaline Phosphatase (46-116) U/L Troponin I (0.000-0.056) ng/mL Total Protein (6.4-8.2) g/dL Albumin (3.4-5.0) g/dL Globulin (2.0-3.5) g/dL Albumin/Globulin Ratio (1.3-2.8) Amylase (25-115) U/L Lipase (73-393) U/L Urine Color Urine Appearance Urine pH (5.0-8.0) Ur Specific [place] (1.001-1.035) Urine Protein (NEGATIVE) mg/dL Urine Glucose (UA) (NEGATIVE) mg/dL Urine Ketones (NEGATIVE) mg/dL Urine Occult Blood (NEGATIVE) Urine Nitrite (NEGATIVE) Urine Bilirubin (NEGATIVE) Urine Urobilinogen (<2.0) EU/dL Ur Leukocyte Esterase (NEGATIVE) Urine RBC (0-2/HPF) Urine WBC (0-5/HPF) Ur Epithelial Cells (NONE-FEW) Urine Bacteria (NEGATIVE) 11/28/17 Range/Units 06:21 WBC (4.0-11.0) K/uL RBC (4.50-5.90) M/uL Hgb (13.0-17.0) g/dL Hct (38.0-50.0) % MCV (80.0-98.0) fL MCH (27.0-32.0) pg MCHC (31.0-37.0) g/dL RDW Std Deviation (28.0-62.0) fl RDW Coeff of [place] (11.0-15.0) % Plt Count (150-400) K/uL MPV (7.40-12.00) fL Neut % (Auto) (48.0-80.0) % Lymph % (Auto) (16.0-40.0) % [place] % (Auto) (0.0-15.0) % Eos % (Auto) (0.0-7.0) % Baso % (Auto) (0.0-1.5) % Neut # (Auto) (1.4-5.7) K/uL Lymph # (Auto) (0.6-2.4) K/uL [place] # (Auto) (0.0-0.8) K/uL Eos # (Auto) (0.0-0.7) K/uL Baso # (Auto) (0.0-0.1) K/uL Nucleated RBC % /100WBC Nucleated RBCs # K/uL Sodium (136-148) mmol/L Potassium (3.5-5.1) mmol/L Chloride (98-107) mmol/L Carbon Dioxide (21.0-32.0) mmol/L BUN (7.0-18.0) mg/dL Creatinine (0.8-1.3) mg/dL Est Cr Clr Drug Dosing mL/min Estimated GFR (MDRD) ml/min Glucose (74-106) mg/dL POC Glucose 181 H (60-110) mg/dL Hemoglobin A1c (4.5-6.2) % Calcium (8.5-10.1) mg/dL Total Bilirubin (0.2-1.0) mg/dL AST (15-37) IU/L ALT (14-63) IU/L Alkaline Phosphatase (46-116) U/L Troponin I (0.000-0.056) ng/mL Total Protein (6.4-8.2) g/dL Albumin (3.4-5.0) g/dL Globulin (2.0-3.5) g/dL Albumin/Globulin Ratio (1.3-2.8) Amylase (25-115) U/L Lipase (73-393) U/L Urine Color Urine Appearance Urine pH (5.0-8.0) Ur Specific [place] (1.001-1.035) Urine Protein (NEGATIVE) mg/dL Urine Glucose (UA) (NEGATIVE) mg/dL Urine Ketones (NEGATIVE) mg/dL Urine Occult Blood (NEGATIVE) Urine Nitrite (NEGATIVE) Urine Bilirubin (NEGATIVE) Urine Urobilinogen (<2.0) EU/dL Ur Leukocyte Esterase (NEGATIVE) Urine RBC (0-2/HPF) Urine WBC (0-5/HPF) Ur Epithelial Cells (NONE-FEW) Urine Bacteria (NEGATIVE) Med Orders - Current: Current Medications Acetaminophen (Tylenol) 325 mg PO Q4H PRN PRN Reason: Fever Greater Than 101 Hydrocodone Bitart/Acetaminophen ([place] 325-5 Mg) 1 - 2 tab PO Q4H PRN PRN Reason: Pain (moderate 4-6) Last Admin: 11/27/17 23:27 Dose: 2 tab Fentanyl (Sublimaze) 50 mcg IVPUSH Q5M PRN PRN Reason: Pain (severe 7-10) Stop: 11/28/17 17:13 Lactated Ringer's (Ringers, Lactated) 1,000 mls @ 125 mls/hr IV ASDIRECTED [facility] Last Admin: 11/27/17 18:31 Dose: 125 mls/hr Lactated Ringer's (Ringers, Lactated) 1,000 mls @ 125 mls/hr IV ASDIRECTED [facility] Last Admin: 11/28/17 02:19 Dose: 125 mls/hr Insulin Aspart (Novolog) 0 unit SUBCUT ACBED [facility]; Protocol Last Admin: 11/28/17 08:20 Dose: 2 unit Insulin Glargine (Lantus Solostar) 10 units SUBCUT BEDTIME [facility] Last Admin: 11/27/17 23:24 Dose: 10 unit Metoclopramide HCl (Reglan) 10 mg IV Q6H [facility] Last Admin: 11/28/17 05:12 Dose: 10 mg Morphine Sulfate (Morphine) 0 mg IVPUSH Q1H PRN PRN Reason: Pain (severe 7-10) Ondansetron HCl (Zofran) 4 mg IVPUSH Q6H PRN PRN Reason: Nausea/Vomiting Discontinued Medications Bupivacaine HCl (Marcaine 0.5%) Confirm Administered Dose 60 ml .ROUTE .STK-MED ONE Stop: 11/27/17 15:16 Bupivacaine HCl (Sensorcaine-Mpf 0.5%) Confirm Administered Dose 20 ml .ROUTE .STK-MED ONE Stop: 11/27/17 15:16 Cefazolin Sodium (Ancef) Confirm Administered Dose 1 gm .ROUTE .STK-MED ONE Stop: 11/27/17 15:15 Famotidine (Pepcid) 20 mg IVPUSH ONETIME ONE Stop: 11/27/17 15:12 Last Admin: 11/27/17 15:16 Dose: 20 mg Fentanyl (Sublimaze) Confirm Administered Dose 250 mcg .ROUTE .STK-MED ONE Stop: 11/27/17 15:31 Fentanyl (Sublimaze) Confirm Administered Dose 100 mcg .ROUTE .STK-MED ONE Stop: 11/27/17 16:22 Hydromorphone HCl (Dilaudid) Confirm Administered Dose 2 mg .ROUTE .STK-MED ONE Stop: 11/27/17 16:22 Sodium Chloride (Normal Saline) 1,000 mls @ 999 mls/hr IV STAT ONE Stop: 11/27/17 13:15 Last Admin: 11/27/17 12:30 Dose: 999 mls/hr Cefoxitin Sodium 2 gm/ Premix 50 mls @ 100 mls/hr IV ONETIME ONE Stop: 11/27/17 15:26 Last Admin: 11/27/17 15:02 Dose: 100 mls/hr Cefoxitin Sodium 1 gm/ Premix 50 mls @ 100 mls/hr IV Q8H [facility] Stop: 11/28/17 08:29 Last Admin: 11/28/17 07:51 Dose: 100 mls/hr Insulin Human Regular (Novolin R) 4 unit SUBCUT ONETIME STA; Protocol Stop: 11/27/17 15:04 Last Admin: 11/27/17 15:17 Dose: 4 units Insulin Human Regular (Novolin R) Confirm Administered Dose 1,000 unit .ROUTE .STK-MED ONE Stop: 11/27/17 15:15 Last Admin: 11/27/17 15:49 Dose: Not Given Iopamidol (Isovue Multipack-370 (76%)) 100 ml IVPUSH ONETIME STA Stop: 11/27/17 13:35 Last Admin: 11/27/17 13:35 Dose: 100 ml Lidocaine (Xylocaine-Mpf 2%) Confirm Administered Dose 5 ml .ROUTE .STK-MED ONE Stop: 11/27/17 15:30 Midazolam HCl (Versed 1 Mg/Ml) Confirm Administered Dose 2 mg .ROUTE .STK-MED ONE Stop: 11/27/17 15:31 Ondansetron HCl (Zofran) 4 mg IVPUSH ONETIME ONE Stop: 11/27/17 12:16 Last Admin: 11/27/17 12:30 Dose: 4 mg Ondansetron HCl (Zofran) 4 mg IVPUSH ONETIME ONE Stop: 11/27/17 14:37 Last Admin: 11/27/17 14:43 Dose: 4 mg Ondansetron HCl (Zofran) Confirm Administered Dose 4 mg .ROUTE .STK-MED ONE Stop: 11/27/17 15:30 Propofol (Diprivan 20 Ml) Confirm Administered Dose 200 mg .ROUTE .STK-MED ONE Stop: 11/27/17 15:30 Rocuronium [place] (Zemuron) Confirm Administered Dose 100 mg .ROUTE .STK-MED ONE Stop: 11/27/17 15:30 Succinylcholine Chloride (Quelicin) Confirm Administered Dose 200 mg .ROUTE .STK -MED ONE Stop: 11/27/17 15:30 - Exam General: Reports: Alert, Oriented, Cooperative, No Acute Distress HEENT: Reports: Pupils Equal, Pupils Reactive, EOMI. Denies: Scleral Icterus Neck: Reports: Supple Lungs: Reports: Clear to Auscultation, Normal Respiratory Effort Cardiovascular: Reports: Regular Rate, Regular Rhythm, No Murmurs. Denies: Tachycardia GI/Abdominal Exam: Normal Bowel Sounds, Soft, Non-Tender, No Mass. No: Guarding , Rigid, Rebound (Male) Exam: No Hernia Rectal (Males) Exam: Deferred Extremities: Normal Inspection, Normal Range of Motion, No Pedal Edema Skin: Reports: Warm, Dry, Intact Wound/Incisions: Reports: Healing Well, Dressing Dry and Intact Neurological: Denies: No New Focal Deficit Psy/Mental Status: Reports: Alert, Normal Affect, Normal Mood Discharge Operative/Procedures - Procedures Performed Operations/Procedure Comment: Laparoscopic appendectomy
--- NOTE | 2017-11-29 09:08 | CT ---
EXAM DATE: 11/27/17 PATIENT'S AGE: 52 Patient: DON PETERS Facility: [place], [place] Site . Site : [id number] Study: CT Abdomen/Pelvis [id number]/2/2018 1:41:08 PM Ordering Physician: Doctor Garcia Final Report: INDICATION: Nausea and vomiting. Pain. TECHNIQUE: Multiple axial images were obtained from the diaphragm to symphysis pubis after administration of 100 mL of Isovue-370 intravenously. Sagittal and coronal re- formatted images were obtained. COMPARISON: None. FINDINGS: The visualized portion of the lung bases are clear. The liver is of diffuse decreased attenuation consistent with fatty infiltration of the liver. The spleen, pancreas, gallbladder and adrenal glands are unremarkable. There is no mass or hydronephrosis seen in the kidneys. There is no evidence of a bowel obstruction. The appendix is enlarged with an appendicolith in the base of the appendix. The appendix measures 1.5 cm in diameter. There is inflammation around the appendix. There is no abscess or free intraperitoneal air seen. There is no free fluid identified in the abdomen or pelvis. There is a calcification in the prostate gland. The abdominal aorta is normal in caliber. There are atherosclerotic calcifications. There is no adenopathy seen. There are degenerative changes in the spine. IMPRESSION: Acute appendicitis with an enlarged appendix and minimal surrounding inflammatory changes in the right lower quadrant. Appendicolith in the base of the appendix. No abscess or free intraperitoneal air seen. Fatty infiltration of the liver. Dictated by Pedro Dixon MD @ 11/27/2017 2:07:29 PM Please note that all CT scans at this facility use dose modulation, iterative reconstruction, and/or weight-based dosing when appropriate to reduce radiation dose to as low as reasonably achievable. Dictated by: Pedro Dixon MD @ 11/27/2017 14:07:40 (Electronic Signature) Report Signed by Proxy. [id number]
== END 2017-11-28 12:35 | disposition home or self-care (01) ==
LOC: MW.ED 12:14 → MW.SDS 15:29 → MW.MS 15:30 → MW.SDS 11-28 12:35
PROVIDERS: ATTEND Surgery
DX: K35.80 Unspecified acute appendicitis (principal); E11.9 Type 2 diabetes mellitus without complications; M50.90 Cervical disc disorder, unspecified, unspecified cervical region; F17.210 Nicotine dependence, cigarettes, uncomplicated; I10 Essential (primary) hypertension; K21.9 Gastro-esophageal reflux disease without esophagitis; E66.9 Obesity, unspecified; Z68.30 Body mass index [BMI] 30.0-30.9, adult; Z90.89 Acquired absence of other organs
CPT/HCPCS: 44970; 74177; 80053; 81001; 82150; 82962; 83036; 83690; 84484; 85025; 96361; 96365; 96372; 96375; 96376; 99285; A9270; J0330; J0694; J1170; J1815; J2250; J2405; J2765; J3010; J7040; J7120; Q9967; 00840; 88304; J0690; J2704